=== PATIENT | female | born 1955 | race Two or more races ===

== ENCOUNTER 2024-12-01 12:22 | Emergency (ER) | payer MEDICAID, SELFPAY ==
[2024-12-01 12:58] VITALS: BP 107/74; PULSE 121; RESP 20; TEMP 37.3; O2SAT 93; BMI 30.3
--- NOTE | 2024-12-01 13:06 | EDNOTE_ITS ---
ED General RME/HPI General Chief complaint: Nausea/Vomiting/Diarrhea Stated complaint: NOT EATING, N/V, FEVER Time Seen by Provider: 12/01/24 13:04 Arrival date/time: 12/01/24 12:22 CC: Lightheaded dizzy nausea and diarrhea HPI patient started triple medications for H. pylori 10 days ago took them for 4 stop for 6 and restarted each time she restarted the medication she want of getting diarrhea with nausea and intermittent vomiting. Patient in addition to this is taking antihypertensive now when she stands up she is lightheaded or dizzy. Initial vital signs show borderline low blood pressure and tachycardia with mild nausea. Related Data Previous Rx's ?Medication ?Instructions ?Recorded hydrochlorothiazide 25 mg tablet 25 mg PO QDAY #30 tab s 09/12/21 ondansetron 4 mg disintegrating 4 mg PO Q8H #10 tabs 0 12/01/24 tablet Allergies Allergy/AdvReac Type Severity Reaction Status Date / Time lisinopril Allergy Intermediate SWELLING Verified 12/01/24 12:29 TO THE FACE Review of Systems Review of Systems Narrative Review of Systems: GEN: No fever, no chills, no weight loss EYES: No discharge, no visual changes, no pain HEENT: No ear pain, no congestion, no sore throat PULM: No shortness of breath, no cough, no congestion CV: No chest pain, no dyspnea on exertion, no palpitations GI: + nausea, + vomiting, no diarrhea, no pain, no constipation : No frequency, no urgency, no dysuria MUSC/SKEL: No joint pain, no back pain SKIN: No rash PSYCH: No hallucinations, no depression HEME/LYMPH: No easy bleeding or bruising tendencies NEURO: No weakness, no headache Past Medical History Social History SMOKING STATUS: Never smoker ED Exam Narrative Physical exam: [General: Obese not in any acute distress Head normocephalic HEENT: Within acceptable limits Neck is supple nontender Chest equal chest rise nontender to palpation Respiratory: Clear to auscultation no wheezes crackles or rubs CV: Rate rhythm is regular, tachycardic, no murmurs rubs or clicks Abdomen is distended secondary to body habitus soft nontender no masses positive bowel sounds all 4 quadrants Back: No CVA tenderness no spinous process tenderness from cervical spine t horacic and lumbar spine Skin: Intact no petechiae rash induration ulceration or crepitus Extremities: Moving all extremity against resistance cap refill less than 2 seconds neurosensory intact Neuro: Awake alert oriented x3 Glascow coma 15 no focal deficits] Course Course Course Narrative: Review after a liter of fluid shows the patient is now normal tensive with no tachycardia. Patient is also noted to be low-grade fever at 100.5. Patient has Tylenol at home she has no other symptoms and feels much better lightheaded dizziness when standing has resolved. Patient advised to stop taking her medicines for the H. pylori and follow-up with her primary care provider. If there is worsening symptoms she is advised to return the emergency room for reevaluation. Quality Measures none Orders Category Date Time Status Saline [Insert IV] NOW Care 12/01/24 13:04 Active CBC Stat Lab 12/01/24 13:20 Completed CMP [Comprehensive Metabolic Panel] Stat Lab 12/01/24 13:20 Completed Lipase Stat Lab 12/01/24 13:20 Completed Ondansetron Inj [Zofran Inj] Med 12/01/24 13:04 Discontinued 4 mg IVP X1 ONE Sodium Chloride 0.9% 1000 ml [Ns] 1,000 ml Med 12/01/24 13:05 Discontinued IV 999 mls/hr Vital Signs Vital signs: Vital Signs Temperature 99.2 F 12/01/24 12:58 Pulse Rate 121 H 12/01/24 12:58 Respiratory Rate 20 12/01/24 12:58 Blood Pressure 107/74 12/01/24 12:58 Pulse Oximetry (%) 93 L 12/01/24 12:58 Oxygen Delivery Method Room Air 12/01/24 12:58 Discharge Plan Plan Patient Disposition: HOME (Self Care) Prescriptions/Referrals Prescriptions/Med Rec: New ondansetron 4 mg tablet,disintegrating 4 mg PO Q8H Qty: 10 0RF No Action hydrochlorothiazide 25 mg tablet 25 mg PO QDAY Qty: 30 0RF Problem List Clinical Impression: Drug-induced nausea and vomiting, Dehydration, Fever Patient/Caregiver Discharge Instructions Other Activity Instructions:: Rest drink plenty of water, if you have worsening symptoms like nausea vomiting and diarrhea in spite of the medication given return to the emergency room for reevaluation otherwise follow-up promptly with your primary care provider for further evaluation of your H. pylori and the medications needed to get rid of it. Have your provider consider retesting. Education Materials: ED Diet, [facility] (Adult), ED Dehydration (Adult), ED Diet for Vomiting or ... Print Language: [place] Stand Alone Forms: Kirsten Award Info., Patient Portal Info Letter, Work/School Release PA/DANIELA Supervising Physician PA/DANIELA Supervising Physician: Mich RIOSP MDM Clinical Information Provided by patient and family Medical Records Reviewed [facility] Meds/Rx Considered, not Ordered None Labs/Rad/Tests considered, not Ordered None Chronic Illness/Social Conditions Add or document further as needed: Hypertension recently started medications for H. pylori. Medication Administration(s) Medication Administration History Discontinued Medications Sodium Chloride (Ns) 1,000 mls @ 999 mls/hr IV .Q1H1M ONE Stop: 12/01/24 14:05 Last Infusion: 12/01/24 14:37 Dose: Infused Documented By: Admin: 12/01/24 13:56 Dose: 999 mls/hr Documented By: DAVIN Ondansetron HCl (Ondansetron Inj 2 Mg/Ml Inj 2 Ml) 4 mg IVP X1 ONE; Protocol Stop: 12/01/24 13:05 Last Admin: 12/01/24 13:56 Dose: 4 mg Documented By: DAVIN
[2024-12-01 13:45] LABS: Basophils # (Auto) 0.0 Thou/mm3 (0.0-0.2); Basophils % (Auto) 0 % (0-2.5); Eosinophils # (Auto) 0.0 Thou/mm3 (0.0-0.5); Eosinophils % (Auto) 0 % (0-10); Hematocrit 40.5 % (36.0-46.0); Hemoglobin 13.8 g/dL (12.0-16.0); Immature Granulocytes Auto 0.01 Thou/mm3 (0.00-0.00); Lymphocytes # (Auto) 0.9 Thou/mm3 (1.0-4.8); Lymphocytes % (Auto) 27 % (10-50); Mean Corpuscular HGB Conc 34.1 g/dl (31.0-37.0); Mean Corpuscular Hemoglobin 29.1 pg (25.0-35.0); Mean Corpuscular Volume 85 fL (80-100); Monocytes # (Auto) 0.1 Thou/mm3 (0.0-0.8); Monocytes % (Auto) 4 % (0-12); Neutrophils # (Auto) 2.2 Thou/mm3 (1.8-7.7); Neutrophils % (Auto) 68 % (37-80); Nucleated Red Blood Cell # 0.00 Thou/mm3 (0.00-0.00); Nucleated Red Blood Cell % 0 /100 WBC (0); Platelet Count 91 Thou/mm3 (140-440); RDW Standard Deviation 40.7 fL (36.4-46.3); Red Blood Count 4.74 Miln/mm3 (4.00-5.20); White Blood Count 3.2 Thou/mm3 (3.6-11.0)
[2024-12-01] MEDS: ONDANSETRON INJ 2 MG/ML INJ 2 ML 4 MG IVP (13:56)
[2024-12-01] MEDS: SODIUM CHLORIDE 0.9% 1000 ML 1,000 ML 999 ML IV (13:56)
[2024-12-01 14:09] LABS: Alanine Aminotransferase 84 U/L (10-49); Albumin, Serum 4.4 gm/dL (3.4-4.8); Albumin/Globulin Ratio 1.6 (1.2-2.2); Alkaline Phosphatase 110 U/L (46-116); Anion Gap 11 (7-16); Aspartate Amino Transferase 153 U/L (0-34); BUN/Creatinine Ratio 15 Ratio (12-20); Bilirubin,Total 1.0 mg/dL (0.3-1.2); Blood Urea Nitrogen 12 mg/dL (9-23); Calcium 10.1 mg/dL (8.3-10.6); Calcium (Corrected) 10.1 mg/dL (8.5-10.1); Carbon Dioxide 28.7 mMol/L (20.0-31.0); Chloride 92 mMol/L (98-107); Creatinine (Component) 0.8 mg/dL (0.6-1.3); Estimated Creatinine Clearance 62.3 mL/min (>60); Globulin 2.7 gm/dL (2.3-3.5); Glucose 121 mg/dL (74-106); Lipase 95 U/L (12-53); Osmolality,Calculated 265 (275-295); Potassium 3.4 mMol/L (3.4-5.1); Sodium 132 mMol/L (136-145); Total Protein 7.1 gm/dL (5.7-8.2); eGFR > 60 See Note
[2024-12-01 14:35] VITALS: BP 127/79; PULSE 104; RESP 18; TEMP 38.1; O2SAT 98
== END 2024-12-01 15:39 | disposition home or self-care (01) ==
LOC: SERX 15:01
PROVIDERS: Registered Nurse General Practice; Emergency Provider Emergency Medicine
DX: E86.0 Dehydration (principal); R50.9 Fever, unspecified; R11.2 Nausea with vomiting, unspecified; T50.915A Adverse effect of multiple unspecified drugs, medicaments and biological substances, initial encounter
CPT/HCPCS: 36415; 80053; 83690; 85025; 96361; 96374; 99283; J2405; J7030